=== PATIENT | male | born 1965 | race Caucasian/White ===

== ENCOUNTER 2021-06-13 11:08 | Outpatient (REF) | payer OTHER, SELFPAY ==
[2021-06-13 13:54] LABS: MANUAL DIFF FLAG NO
[2021-06-13 14:00] LABS: Basophils Percent Auto 0.4 % (0-2); Eosinophils Absolute Auto 0.1 X10*3/uL (0.0-0.4); Eosinophils Percent Auto 1.3 % (0-4); Hematocrit 41.4 % (42-52); Hemoglobin 13.8 g/dl (14.0-18.0); Imm Gran Abs Auto 0.01 X10*3/uL (0.00-0.03); Imm Gran Pct Auto 0.2 % (0.0-0.4); Lymphocytes Absolute Auto 1.4 X10*3/uL (1.2-4.9); Lymphocytes Percent Auto 31.5 % (20-40); Mean Corpuscular HGB Conc 33.3 g/dl (31.0-36.0); Mean Corpuscular Hemoglobin 31.4 pg (27.0-33.0); Mean Corpuscular Volume 94.1 fL (80-98); Mean Platelet Volume 9.7 fL (9.4-12.4); Monocytes Absolute Auto 0.3 X10*3/uL (0.1-1.2); Monocytes Percent Auto 7.1 % (2-11); Neutrophils Absolute Auto 2.7 X10*3/uL (2.0-8.3); Neutrophils Percent Auto 59.5 % (45-73); Platelet Count 193 X10*3/uL (160-400); Red Cell Distribution Width 13.1 % (11.0-16.0); White Blood Count 4.5 X10*3/uL (4.8-10.8)
[2021-06-13 14:44] LABS: Alanine Aminotransferase 26 U/L (0-40); Albumin Level 4.2 g/dL (3.5-5.0); Alkaline Phosphatase 66 U/L (39-117); Anion Gap 15 (12-20); Aspartate Amino Transferase 21 U/L (5-37); Bilirubin Total 0.7 mg/dL (0.0-1.0); Blood Urea Nitrogen 19 mg/dL (9-16); Carbon Dioxide 24 mmol/L (22-29); Chloride 105 mmol/L (96-108); Cholesterol 215 mg/dL; Estimated Glomerular Filt Rate > 60; Glucose Fasting 101 mg/dL (60-99); HDL Cholesterol 43 mg/dL; LDL Cholesterol Calculated 159 mg/dl; Potassium 4.2 mmol/L (3.3-5.1); Sodium 140 mmol/L (135-145); Total Protein 6.5 g/dL (6.5-8.0); Triglycerides 67 mg/dL
[2021-06-13 15:09] LABS: PSA,Total (Free>4and<10) 0.55 ng/mL (0.00-4.00); Thyroid Stimulating Hormone 1.09 uIU/mL (0.32-4.0)
[2021-06-18 13:25] LABS: Vitamin D 25-OH, D2 <4 ng/mL; Vitamin D 25-OH, D3 33 ng/mL; Vitamin D 25-OH, Total 33 ng/mL (30-100)
== END 2021-06-13 11:09 | disposition home or self-care (01) ==
LOC: HO.HMGCLDS 11:08
PROVIDERS: PCP Internal Medicine; Visit Provider Internal Medicine
DX: Z00.00 Encounter for general adult medical examination without abnormal findings (principal); D64.9 Anemia, unspecified; E66.9 Obesity, unspecified; Z68.33 Body mass index [BMI] 33.0-33.9, adult; E78.5 Hyperlipidemia, unspecified; E55.9 Vitamin D deficiency, unspecified; G47.33 Obstructive sleep apnea (adult) (pediatric); K21.9 Gastro-esophageal reflux disease without esophagitis; Z12.5 Encounter for screening for malignant neoplasm of prostate
CPT/HCPCS: 36415; 80053; 80061; 82306; 84153; 84443; 85025

== ENCOUNTER 2022-06-12 11:19 | Outpatient (REF) | payer OTHER, SELFPAY ==
[2022-06-12 14:02] LABS: Hematocrit 45.9 % (42.0-52.0); Hemoglobin 15.3 g/dl (14.0-18.0); Mean Corpuscular HGB Conc 33.3 g/dl (31.0-36.0); Mean Corpuscular Hemoglobin 30.9 pg (27.0-33.0); Mean Corpuscular Volume 92.7 fL (80.0-98.0); Mean Platelet Volume 9.6 fL (9.4-12.4); Platelet Count 208 X10*3/uL (160-400); Red Blood Count 4.95 X10*6/uL (4.60-5.80); Red Cell Distribution Width 12.7 % (11.0-16.0); White Blood Count 4.4 X10*3/uL (4.8-10.8)
[2022-06-12 14:28] LABS: Alanine Aminotransferase 25 U/L (0-40); Albumin Level 4.3 g/dL (3.5-5.0); Alkaline Phosphatase 59 U/L (39-117); Anion Gap 12 (12-20); Aspartate Amino Transferase 19 U/L (5-37); Bilirubin Total 0.5 mg/dL (0.0-1.0); Blood Urea Nitrogen 23 mg/dL (9-16); Calcium 9.2 mg/dL (8.4-10.2); Carbon Dioxide 27 mmol/L (22-29); Chloride 105 mmol/L (96-108); Cholesterol 245 mg/dL; Estimated Glomerular Filt Rate > 60; Glucose Fasting 112 mg/dL (60-99); HDL Cholesterol 51 mg/dL; LDL Cholesterol Calculated 181 mg/dl; Potassium 4.2 mmol/L (3.3-5.1); Sodium 140 mmol/L (135-145); Total Protein 6.9 g/dL (6.5-8.0); Triglycerides 67 mg/dL
[2022-06-12 14:51] LABS: Prostate Specific Antigen Scr 0.82 ng/mL (<0.05-4.0)
== END 2022-06-12 11:20 | disposition home or self-care (01) ==
LOC: HO.HMGCLDS 11:19
PROVIDERS: PCP Internal Medicine; Visit Provider Physician Assistant
DX: Z00.00 Encounter for general adult medical examination without abnormal findings (principal); Z12.5 Encounter for screening for malignant neoplasm of prostate
CPT/HCPCS: 36415; 80053; 80061; 84153; 85027

== ENCOUNTER 2023-06-12 07:34 | Outpatient (AMB) | payer OTHER, SELFPAY ==
[2023-06-12 07:41] VITALS: BP 128/72; PULSE 71; O2SAT 98; BMI 37.7
--- NOTE | 2023-06-12 07:41 | A.OFFPC_ITS ---
Vital Signs 06/12/23 07:41 Height 5 ft 10 in Weight 263 lb BMI 37.7 BP 128/72 Blood Pressure Location Lt brachial Position Sitting Pulse 71 Pulse Source Pulse Oximeter Pulse Oximetry (%) 98 Oxygen Delivery Method Room Air Intake Visit Reasons: Annual Exam Single Stayer Operator Required: No Accompanied by: Self / Same As Patient Allergies pollen Allergy (Mild, Uncoded 06/12/23 07:45) Itching Medication List - Last Reconciled 06/12/23 by Emani Sullivan MD omeprazole 20 mg PO DAILY 90 days Tobacco use date assessed: 06/12/23 Dental Screening Dental Screen Date: 06/12/23 Did you have a dental visit in the last 12 months?: Yes Did you have a dental problem in the last 6 months where you did not have access to dental care?: No Was dental information given to patient?: Patient has dentist HPI HPI Comments History of Present Illness0 Details This is a 57-year-old male that comes for his physical exam. Last colonoscopy was 2015 and was normal. Has chronic GERD and has had endoscopy in the past. No chest pain or shortness of breath. Had elevated cholesterol in the past that will be repeated. [facility] Medical History (Updated 06/12/23 @ 08:50 by Emani Sullivan MD) Class 1 obesity without serious comorbidity with body mass index (BMI) of 33.0 to 33.9 in adult GERD (gastroesophageal reflux disease) Leukopenia CARMEN on CPAP Surgical History (Updated 06/12/23 @ 07:56 by Emani Sullivan MD) H/O colonoscopy History of ankle surgery Status post ablation of incompetent vein using laser Family History (Updated 06/12/23 @ 08:02 by Emani Sullivan MD) Father Esophageal cancer Mother Alzheimers disease Social History (Updated 06/12/23 @ 07:56 by Emani Sullivan MD) Housing: Apartment Alcohol intake: current Alcohol intake frequency: a few times a week Alcohol type: other Patient Tobacco Use Status: Never used Tobacco e-Cigarette/Vaping Use: Never Used Second Hand Smoke Exposure: No service: No 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 1. Little interest or pleasure in doing things: not at all 2. Feeling down, depressed, or hopeless: not at all 3. Trouble falling or staying asleep, or sleeping too much: not at all 4. Feeling tired or having little energy: not at all 5. Poor appetite or overeating: not at all 6. Feeling bad about yourself - or that you are a failure or have let yourself or your family down: not at all 7. Trouble concentrating on things, such as reading the newspaper or watching television: not at all 8. Moving or speaking so slowly that other people could have noticed. Or the opposite - being so fidgety or restless that you have been moving around a lot more than usual: not at all 9. Thoughts that you would be better off or of hurting yourself in some way: not at all Total score: 0 Depression Screening Interpretation: Negative 43138 - PHQ-9 Billing: Yes Source: Developed by Drs. Aidan Mason, Cady Guzmán, Jarret Georges and colleagues, with an educational keily from [employer]. Thrive Questionnaire Date Thrive assessed: 06/12/23 I am a: Patient What is your living situation today?: I have a steady place to live Within the past 12 months, did the food you bought not last and you didn't have the money to get more?: Never true Within the past 12 months, did you worry whether your food would run out before you got money to buy more?: Never true Do you have trouble paying for medicines?: No Do you have trouble getting transportation to medical appointments?: No Do you have trouble paying your heating and electricity bill?: No Do you have trouble taking care of your child, family member or friend?: No Do you have trouble with day-to-day activities such as bathing, preparing meals, shopping, managing finances, etc.?: No Are you currently unemployed and looking for a job?: No Are you interested in more education?: No Currently or been in a relationship where the following occur: no concerns reported AUDIT C Alcohol Use Questionnaire (AUDIT-C) 1. How often do you have a drink containing alcohol?: Monthly or less 2. How many drinks containing alcohol do you have on a typical day when you are drinking?: 1 or 2 3. How often do you have six or more drinks on one occasion?: Never Total Score: 1 Score Reviewed/Action Taken: No SOLO-7 AMB Questionnaire SOLO-7 Date SOLO - 7 assessed: 06/12/23 Feeling nervous, anxious, or on edge: 0 = Not at all Not being able to stop or control worryin = Not at all Worrying too much about different things: 0 = Not at all Trouble relaxin = Not at all Being so restless that it is hard to sit still: 0 = Not at all Becoming easily annoyed or irritable: 0 = Not at all Feeling afraid as if something awful might happen: 0 = Not at all Total SOLO-7 score (0-4 normal; 5-9 mild; 10-14 moderate; 15-21 severe): 0 Source: Developed by Drs. Aidan Mason, Cady Guzmán, Jarret Georges and colleagues, with an educational keily from [employer]. SOLO-7 Assessment Billing SOLO-7 Assessment Tool: SOLO-7 Assessment 91872 Review of Systems Const All systems reviewed & are unremarkable except as noted in HPI and below Eyes Reports no additional complaints, Denies change in vision and Denies other visual disturbances Card Denies chest pain at rest, Denies chest pain with activity, Denies edema, Denies irregular heart rhythm, Denies claudication, Denies dyspnea, Denies dyspnea on exertion, Denies orthopnea, Denies paroxysmal nocturnal dyspnea and Denies slow heart rate Resp Denies cough, Denies dyspnea and Denies dyspnea on exertion GI Denies abdominal pain, Denies change in bowel habits, Denies excessive flatus, Denies nausea and Denies vomiting Denies urinary hesitancy, Denies urinary incontinence and Denies urinary urgency Musc Denies abnormal gait, Denies atrophy, Denies deformity and Denies limited range of motion Skin/Breast Denies bleeding lesions, Denies changing lesions and Denies rash Neuro Denies abnormal gait and Denies lack of coordination Physical exam (Primary Care) Vital Signs: Last Vital Signs Pulse 71 06/12/23 07:41 BP 128/72 06/12/23 07:41 Pulse Ox 98 06/12/23 07:41 Oxygen Delivery Method Room Air 06/12/23 07:41 BMI result Body Mass Index 37.7 Tobacco/Smoking Status: Tobacco use Status Tobacco use date assessed 06/12/23 06/12/23 07:44 Patient Tobacco Use Status Never used Tobacco 06/12/23 07:56 e-Cigarette/Vaping Use Never Used 06/12/23 07:56 PHQ-9: PHQ-9 Score PHQ-9: Total score 0 06/12/23 07:48 Depression Screening Interpretation: Negative Thrive Assessment: Date of Thrive Assessment Date Thrive assessed 06/12/23 06/12/23 07:44 Currently or been in a relationship where the following occur: no concerns reported Const Orientation/consciousness: patient oriented x3 HENMT Head: Yes normal to inspection, Yes normocephalic and Yes atraumatic Ears: external ears normal Eyes General: appearance normal, both eyes and all related structures Eyelids: Yes eyelids normal Conjunctivae: conjunctivae normal Neck Neck: Yes normal visual inspection and Yes supple Resp Effort & Inspection: normal respiratory effort Auscultation: clear to auscultation bilaterally Cardio Jugular venous distension: no JVD Rate: regular rate Rhythm: regular rhythm Heart sounds: S1 normal heart sound present and S2 normal heart sound present GI Inspection: Yes normal to inspection Palpation (GI): Soft to palpation and nontender Auscultation: normal bowel sounds Skin General skin exam: no rashes or lesions noted Neuro General: patient oriented x3 and no focal motor deficits Extrem General: Yes full ROM Psych Appearance: grossly normal Assessment and Plan Assessment & Plan (1) Annual physical exam: Code(s): Z00.00 - Encounter for general adult medical examination without abnormal findings Plan: Repeat in a year Orders: Orders Comprehensive [place]. Panel Fast Today Z00.00 - Encounter for general adult medical examination without abnormal findings Lipid Panel Today Z00.00 - Encounter for general adult medical examination without abnormal findings Medications: Refilled omeprazole 20 mg PO DAILY 90 caps 3RF 90 days Coding Level of Care Code Est Pt Prev Care 40-64y(74677) Diagnoses Annual physical exam Z00.00 Additional Codes SOLO-7 Assessment Billing - SOLO-7 Assessment Tool: SOLO-7 Assessment [id number] ([id number]) Time Spent (min) 32
== END 2023-06-12 08:08 | disposition home or self-care (01) ==
PROVIDERS: PCP Internal Medicine; Visit Provider Internal Medicine
DX: Z00.00 Encounter for general adult medical examination without abnormal findings (principal)
CPT/HCPCS: 99396

== ENCOUNTER 2023-06-17 08:02 | Outpatient (REF) | payer OTHER, SELFPAY ==
[2023-06-17 11:58] LABS: Alanine Aminotransferase 23 U/L (0-40); Albumin Level 4.1 g/dL (3.5-5.0); Alkaline Phosphatase 65 U/L (39-117); Anion Gap 11 (12-20); Aspartate Amino Transferase 20 U/L (5-37); Bilirubin Total 0.8 mg/dL (0.0-1.0); Blood Urea Nitrogen 15 mg/dL (9-16); Calcium 9.4 mg/dL (8.4-10.2); Carbon Dioxide 28 mmol/L (22-29); Chloride 105 mmol/L (96-108); Cholesterol 200 mg/dL (<200); Estimated Glomerular Filt Rate > 60; Glucose Fasting 115 mg/dL (60-99); HDL Cholesterol 40 mg/dL (>40); LDL Cholesterol Calculated 135 mg/dL (<100); Sodium 140 mmol/L (135-145); Total Protein 6.8 g/dL (6.5-8.0); Triglycerides 128 mg/dL (<150)
== END 2023-06-17 08:03 | disposition home or self-care (01) ==
LOC: HO.HMGCLDS 08:02
PROVIDERS: PCP Internal Medicine; Visit Provider Internal Medicine
DX: Z00.00 Encounter for general adult medical examination without abnormal findings (principal)
CPT/HCPCS: 36415; 80053; 80061

== ENCOUNTER → 2024-03-18 09:58 | Outpatient (REF) | payer OTHER, SELFPAY | LOC: HO.SL 09:58 | PROVIDERS: PCP Internal Medicine; Visit Provider Internal Medicine | DX: G47.33 Obstructive sleep apnea (adult) (pediatric) (principal); Z99.89 Dependence on other enabling machines and devices | CPT/HCPCS: 95806 ==

== ENCOUNTER → 2024-03-18 10:10 | Outpatient (BNV) | payer OTHER, SELFPAY | PROVIDERS: PCP Internal Medicine; Visit Provider Internal Medicine | DX: G47.33 Obstructive sleep apnea (adult) (pediatric) (principal) | CPT/HCPCS: 95806 ==

== ENCOUNTER 2024-06-14 09:16 | Outpatient (AMB) | payer SELFPAY ==
--- NOTE | 2024-06-14 09:36 | AM.OFFWIN_ITS ---
Intake Vital Signs 06/14/24 09:37 Height 5 ft 10 in Weight 267 lb BMI 38.3 BP 110/82 Blood Pressure Location Rt brachial Position Sitting Pulse 70 Pulse Source Pulse Oximeter Temp 97.9 F Temp Source Oral Pulse Oximetry (%) 98 Oxygen Delivery Method Room Air Intake Visit Reasons: EP Work PE/OK By Jess Intake Note: pt is here for a physical exam for work. Patient Tobacco Use Status: Never used Tobacco Allergies pollen Allergy (Mild, Uncoded 06/14/24 09:37) Itching Do you need a note to return to daycare/school/sports/work: Yes HPI HPI Comments History of Present Illness Details Patient is a 58-year-old male with a past medical history of hyperlipidemia, obesity, CARMEN on CPAP, GERD and leukopenia who is here for a PE for work. He denies any chest pain, chest pain at rest, palpitations, headaches or any other feeling of unwell. 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 He states he generally stands in [address] for the games and does not run up and down the court. [facility] Medical History (Updated 03/30/24 @ 18:36 by Emani Sullivan MD) Leukopenia Class 1 obesity without serious comorbidity with body mass index (BMI) of 33.0 to 33.9 in adult CARMEN on CPAP GERD (gastroesophageal reflux disease) Surgical History (Updated 06/12/23 @ 07:56 by Emani Sullivan MD) Status post ablation of incompetent vein using laser H/O colonoscopy History of ankle surgery Family History (Updated 06/12/23 @ 08:02 by Emani Sullivan MD) Father Esophageal cancer Mother Alzheimers disease Social History (Updated 06/12/23 @ 07:56 by Emani Sullivan MD) Housing: Apartment Alcohol intake: current Alcohol intake frequency: a few times a week Alcohol type: other Patient Tobacco Use Status: Never used Tobacco e-Cigarette/Vaping Use: Never Used Second Hand Smoke Exposure: No service: No Current occupational status: retired 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 Cognitive needs: No Hearing needs: No Vision needs: No Review of Systems Const All systems reviewed & are unremarkable except as noted in HPI and below Physical Exam Vital Signs: Last Vital Signs Temp 97.9 F 06/14/24 09:37 Pulse 70 06/14/24 09:37 BP 110/82 06/14/24 09:37 Pulse Ox 98 06/14/24 09:37 Oxygen Delivery Method Room Air 06/14/24 09:37 BMI result Body Mass Index 38.3 Const General: cooperative, healthy appearing, comfortable, no acute distress and well developed Orientation/consciousness: patient oriented x3 Limitations: no limitations HEENT Head: Yes normal to inspection Ears: hearing grossly normal bilaterally General nose exam: Normal external nose present Face and sinus: Yes normal facial exam Eyes General: appearance normal, both eyes and all related structures Neck Neck: Yes normal visual inspection and Yes full ROM Resp Effort & Inspection: normal respiratory effort and able to speak in complete sentences Auscultation: clear to auscultation bilaterally Cardio Rate: regular rate Rhythm: regular rhythm Heart sounds: normal S1 and S2 GI Inspection: Yes normal to inspection Palpation (GI): Soft to palpation and nontender Skin General skin exam: no rashes or lesions noted Neuro General: patient oriented x3 Extrem Other: 5/5 strength upper and lower extremities bilaterally General: Yes normal to inspection, Yes full ROM, Yes capillary refill normal, Yes no pedal edema and Yes normal gait Right upper extremity: normal to inspection, full ROM and normal capillary refill Left upper extremity: normal to inspection, full ROM and normal capillary refill Right lower extremity: normal to inspection, full ROM and normal capillary refill Left lower extremity: normal to inspection, full ROM and normal capillary refill Assessment & Plan Assessment & Plan (1) Annual physical exam: Code(s): Z00.00 - Encounter for general adult medical examination without abnormal findings Plan: Vital signs are stable, physical exam was unremarkable. Patient appears in good overall health with no complaints. 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 Plan See above Coding Level of Care Code Sports/Work/School Physical Diagnoses Annual physical exam Z00.00 Time Spent (min) 20
[2024-06-14 09:37] VITALS: BP 110/82; PULSE 70; TEMP 36.6; O2SAT 98; BMI 38.3
== END 2024-06-14 10:07 | disposition home or self-care (01) ==
PROVIDERS: PCP Internal Medicine; Visit Provider Physician Assistant
DX: Z00.00 Encounter for general adult medical examination without abnormal findings (principal)
CPT/HCPCS: 99080

== ENCOUNTER 2025-02-15 08:45 | Outpatient (AMB) | payer OTHER, SELFPAY ==
--- NOTE | 2025-02-15 08:48 | A.OFFPC_ITS ---
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 Required: No Accompanied by: Self / Same As Patient Allergies pollen Allergy (Mild, Uncoded 02/15/25 08:56) Itching Medication List - Last Reconciled 02/15/25 by Emani Sullivan MD CPAP auto PAP 6-20 cm H2O omeprazole 20 mg PO DAILY 90 days Tobacco use date assessed: 02/15/25 Dental Screening Dental Screen Date: 02/15/25 Did you have a dental visit in the last 12 months?: Yes Did you have a dental problem in the last 6 months where you did not have access to dental care?: No Was dental information given to patient?: Patient has dentist HPI HPI Comments History of Present Illness Details The patient is a 59-year-old male presenting for an annual physical examination. He is due for a colonoscopy next year after having his last one in 2015. His last tetanus vaccine was in 2014, and although initially reluctant, he agreed on the vaccine. There is ongoing management of weight through dietary controls and increased physical activity, resulting in weight loss. His past blood sugar levels indicated prediabetes, prompting follow-up lab work to check cholesterol within this year's wellness profile. He continues to experience symptoms from GERD and maintains daily omeprazole use due to a hiatal hernia. A CPAP machine is employed for sleep apnea management. His surgical history includes a past ankle procedure tied to an old injury. A family history reveals concerns of esophageal cancer and Alzheimer's disease. Lifestyle modifications extend to abstaining from tobacco while consuming low- carb alcoholic seltzers occasionally. 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 - Next colonoscopy due next year; last c onducted in 2015. - Tetanus vaccination is due; last recei franklin in 2014. - Focus on weight management through imp roved diet and increased cardio activity. - Follow-up lab work for cholesterol and blood glucose to be confirmed this year. - Continuous use of CPAP machine for sle ep apnea. [facility] Medical History Leukopenia Class 1 obesity without serious comorbidity with body mass index (BMI) of 33.0 to 33.9 in adult CARMEN on CPAP GERD (gastroesophageal reflux disease) Surgical History Status post ablation of incompetent vein using laser H/O colonoscopy History of ankle surgery Family History Father Esophageal cancer Mother Alzheimers disease Social History Housing: Apartment Alcohol intake: current Alcohol intake frequency: a few times a week Alcohol type: other Patient Tobacco Use Status: Never used Tobacco e-Cigarette/Vaping Use: Never Used Second Hand Smoke Exposure: No service: No Current occupational status: retired 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 Cognitive needs: No Hearing needs: No Vision needs: No Questionnaire PHQ-9 Over the last 2 weeks, how often have you been bothered by any of the following problems? 1. Little interest or pleasure in doing things: not at all 2. Feeling down, depressed, or hopeless: not at all 3. Trouble falling or staying asleep, or sleeping too much: not at all 4. Feeling tired or having little energy: not at all 5. Poor appetite or overeating: not at all 6. Feeling bad about yourself - or that you are a failure or have let yourself or your family down: not at all 7. Trouble concentrating on things, such as reading the newspaper or watching television: not at all 8. Moving or speaking so slowly that other people could have noticed. Or the opposite - being so fidgety or restless that you have been moving around a lot more than usual: not at all 9. Thoughts that you would be better off or of hurting yourself in some way: not at all Total score: 0 Depression Screening Interpretation: Negative Depression Screening Done: Yes 73187 - PHQ-9 Billing: Patient declined-do not bill Source: Developed by Drs. Aidan Mason, Cady Guzmán, Jarret Georges and colleagues, with an educational keily from [employer]. Thrive Questionnaire Date Thrive assessed: 02/08/25 I am a: Patient What is your living situation today?: I have a steady place to live Within the past 12 months, did the food you bought not last and you didn't have the money to get more?: Never true Within the past 12 months, did you worry whether your food would run out before you got money to buy more?: Never true Do you have trouble paying for medicines?: No Do you have trouble getting transportation to medical appointments?: No Do you have trouble paying your heating and electricity bill?: No Do you have trouble taking care of your child, family member or friend?: No Do you have trouble with day-to-day activities such as bathing, preparing meals, shopping, managing finances, etc.?: No Are you currently unemployed and looking for a job?: No Are you interested in more education?: No Please select the resources that you would like help with: None Currently or been in a relationship where the following occur: No concerns reported THRIVE Score: 0 AUDIT C Alcohol Use Questionnaire (AUDIT-C) 1. How often do you have a drink containing alcohol?: Monthly or less 2. How many drinks containing alcohol do you have on a typical day when you are drinking?: 1 or 2 3. How often do you have six or more drinks on one occasion?: Never Total Score: 1 Score Reviewed/Action Taken: No SOLO-7 AMB Questionnaire SOLO-7 Date SOLO - 7 assessed: 02/15/25 Feeling nervous, anxious, or on edge: 0 = Not at all Not being able to stop or control worryin = Not at all Worrying too much about different things: 0 = Not at all Trouble relaxin = Not at all Being so restless that it is hard to sit still: 0 = Not at all Becoming easily annoyed or irritable: 0 = Not at all Feeling afraid as if something awful might happen: 0 = Not at all Total SOLO-7 score (0-4 normal; 5-9 mild; 10-14 moderate; 15-21 severe): 0 Source: Developed by Drs. Aidan Mason, Cady Guzmán, Jarret Georges and colleagues, with an educational keily from [employer]. SOLO-7 Assessment Billing SOLO-7 Assessment Tool: SOLO-7 Assessment 21978 Review of Systems Const All systems reviewed & are unremarkable except as noted in HPI and below Card Denies chest pain at rest, Denies chest pain with activity, Denies edema, Denies irregular heart rhythm, Denies claudication, Denies dyspnea, Denies dyspnea on exertion, Denies orthopnea, Denies paroxysmal nocturnal dyspnea and Denies slow heart rate Resp Denies cough, Denies dyspnea and Denies dyspnea on exertion GI Denies abdominal pain, Denies change in bowel habits, Denies excessive flatus, Denies nausea and Denies vomiting Denies urinary hesitancy, Denies urinary incontinence and Denies urinary urgency Neuro Denies behavioral changes and Denies lack of coordination Psych Denies behavioral changes Physical exam (Primary Care) Vital Signs: Last Vital Signs BP 122/86 02/15/25 08:52 BMI result Body Mass Index 34.0 BMI Assessment/Plan discussion: High BMI High, discussed plan: lifestyle, weight reduction, dietary and physical activity Tobacco/Smoking Status: Tobacco use Status Tobacco use date assessed 02/15/25 02/15/25 08:55 Patient Tobacco Use Status Never used Tobacco 02/15/25 08:55 e-Cigarette/Vaping Use Never Used 02/15/25 08:55 PHQ-9: PHQ-9 Score PHQ-9: Total score 0 02/15/25 09:15 Depression Screening Interpretation: Negative Thrive Assessment: Date of Thrive Assessment Date Thrive assessed 02/08/25 02/15/25 08:55 Currently or been in a relationship where the following occur: No concerns r eported [facility] Head: Yes normal to inspection, Yes normocephalic and Yes atraumatic Ears: external ears normal Eyes General: appearance normal, both eyes and all related structures Eyelids: Yes eyelids normal Conjunctivae: conjunctivae normal Neck Neck: Yes normal visual inspection and Yes supple Resp Effort & Inspection: normal respiratory effort Auscultation: clear to auscultation bilaterally Cardio Jugular venous distension: no JVD Rate: regular rate Rhythm: regular rhythm Heart sounds: S1 normal heart sound present and S2 normal heart sound present GI Inspection: Yes normal to inspection Palpation (GI): Soft to palpation and nontender Auscultation: normal bowel sounds Skin General skin exam: no rashes or lesions noted Neuro General: no focal motor deficits Extrem General: Yes full ROM Psych Appearance: grossly normal Immunizations Boostrix Tdap 2.5 Lf unit-8 mcg-5 Lf/0.5 mL intramuscular syringe Performing Provider: Emani Sullivan MD Performing Location[facility] [place] Administered by: DARCI Sal on 02/15/25 09:15 Dose Route Admin Location Dispensed Lot Number Expiration Date [facility] 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 0.5 mL IM Left Deltoid 0.5 mL [id number] 06/22/27 [id number] [employer] VIS Given Date VIS Provided VIS Publication Date 02/15/25 Single Vaccine 24 Eligibility Eligibility Date Funding Source Not [facility] Eligible 02/15/25 Private Coding Level of Care Code Est Pt Prev Care 40-64y(15265) Diagnoses Annual physical exam Z00.00 Additional Codes SOLO-7 Assessment Billing - SOLO-7 Assessment Tool: SOLO-7 Assessment 23551 ([id number]) Time Spent (min) 29 Assessment & Plan Assessment & Plan (1) Annual physical exam: Code(s): Z00.00 - Encounter for general adult medical examination without abnormal findings Category: Medical Plan I discussed updating the tetanus vaccination, and emphasize the patient's ongoing lifestyle efforts, focusing on diet and exercise for weight management and cardio routine effectiveness. I planned cholesterol and blood glucose labs, reinforcing GERD control through daily omeprazole and addressing CPAP use for sleep apnea. Colonoscopy screening will occur in the upcoming year due to past procedure schedule and family cancer history. Periodic checks for venous insufficiency will account for surgical interventions and resultant improvements. Patient was informed and verbally consented to the use of an ambient scribe for clinic note documentation during this visit. I discussed administering the tetanus vaccine which was due since the last dose was given in 2014, ultimately agreeing to this today. I affirmed the patient's need for consistent weight management and increased physical activity, emphasizing the benefits of maintaining prediabetes and hyperlipidemia under control. The patient was reminded of using the CPAP machine to improve sleep apnea and plans for a colonoscopy next year, vital due to his father's history of esophageal cancer. I reassured him of continued management of GERD through omeprazole and following up on his venous insufficiency monitoring as previous surgical intervention proved effective. Orders: Orders Lipid Panel Today Z00.00 - Encounter for general adult medical examination without abnormal findings Comprehensive [place]. Panel Fast Today Z00.00 - Encounter for general adult medical examination without abnormal findings TDaP Immunization Today Z23 - Encounter for immunization Patient Instructions: - Receive tetanus vaccination today. - Maintain diet and exercise for weight and cardio health. - Conduct lab work for cholesterol and glucose monitoring. - Continue omeprazole for GERD as directed. - Use CPAP machine every night to manage sleep apnea. - Plan for colonoscopy screening next year. - Follow up with any new symptoms or concerns promptly.
[2025-02-15 08:52] VITALS: BP 122/86; BMI 34.0
== END 2025-02-15 09:15 | disposition home or self-care (01) ==
LOC: HO.HMCH 08:46
PROVIDERS: PCP Internal Medicine; Visit Provider Internal Medicine
DX: Z23 Encounter for immunization (principal); Z00.00 Encounter for general adult medical examination without abnormal findings

== ENCOUNTER → 2025-02-15 08:45 | Outpatient (BNVA) | payer OTHER, SELFPAY | PROVIDERS: PCP Internal Medicine; Visit Provider Internal Medicine | DX: Z00.00 Encounter for general adult medical examination without abnormal findings (principal); Z23 Encounter for immunization; K21.9 Gastro-esophageal reflux disease without esophagitis; K44.9 Diaphragmatic hernia without obstruction or gangrene; Z79.899 Other long term (current) drug therapy | CPT/HCPCS: 90471; 90715; 96127 ==

== ENCOUNTER 2025-02-16 09:03 | Outpatient (REF) | payer OTHER, SELFPAY ==
[2025-02-16 11:01] LABS: Alanine Aminotransferase 33 U/L (0-40); Albumin Level 4.1 g/dL (3.5-5.0); Alkaline Phosphatase 90 U/L (39-117); Anion Gap 10 (12-20); Aspartate Amino Transferase 28 U/L (5-37); Bilirubin Total 1.1 mg/dL (0.0-1.0); Blood Urea Nitrogen 16 mg/dL (9-16); Calcium 8.7 mg/dL (8.4-10.2); Carbon Dioxide 27 mmol/L (22-29); Chloride 106 mmol/L (96-108); Cholesterol 185 mg/dL (<200); Estimated Glomerular Filt Rate > 60; Glucose Fasting 101 mg/dL (60-99); HDL Cholesterol 39 mg/dL (>40); LDL Cholesterol Calculated 119 mg/dL (<100); Potassium 3.6 mmol/L (3.3-5.1); Sodium 139 mmol/L (135-145); Total Protein 6.7 g/dL (6.5-8.0); Triglycerides 135 mg/dL (<150)
== END 2025-02-16 09:04 | disposition home or self-care (01) ==
LOC: HO.HMGCLDS 09:03
PROVIDERS: PCP Internal Medicine; Visit Provider Internal Medicine
DX: Z00.00 Encounter for general adult medical examination without abnormal findings (principal)
CPT/HCPCS: 36415; 80053; 80061

== ENCOUNTER 2025-08-10 08:17 | Outpatient (AMB) | payer OTHER, SELFPAY ==
[2025-08-10 08:21] VITALS: BP 118/84; PULSE 77; TEMP 36.2; O2SAT 96; BMI 33.3
--- NOTE | 2025-08-10 08:21 | A.OFFPC_ITS ---
Vital Signs 08/10/25 08:21 Height 5 ft 10 in Weight 232 lb 2 oz BMI 33.3 BP 118/84 Blood Pressure Location Lt brachial Position Sitting Pulse 77 Pulse Source Pulse Oximeter Temp 97.1 F Temp Source Temporal Artery Scan Pulse Oximetry (%) 96 Oxygen Delivery Method Room Air Intake Visit Reasons: Abdominal Pain Allergies pollen Allergy (Mild, Uncoded 08/10/25 08:23) Itching Tobacco use date assessed: 08/10/25 Dental Screening Dental Screen Date: 08/10/25 Did you have a dental visit in the last 12 months?: Yes Did you have a dental problem in the last 6 months where you did not have access to dental care?: No Was dental information given to patient?: Patient has dentist HPI HPI Comments History of Present Illness Details The patient is a 59-year-old male presenting with severe RUQ abdominal pain. The abdominal pain began approximately three weeks ago, waking the patient at 2 AM with severe discomfort located in the right upper abdomen. The pain was intense, preventing him from finding a comfortable position, and lasted about an hour before subsiding, allowing him to return to sleep. A similar episode occurred a week ago while the patient was at a grocery store, described as feeling like he had done numerous sit-ups, with pain escalating to a 9.5 on a scale of 10. The pain was located just below the ribs, more on the right side, and lasted for about two hours before decreasing in intensity. On both days the patient had large fatty meals (big mac). The patient has lost approximately 33 pounds since September through intermittent fasting and dietary changes, reducing his weight from 265 to 232 pounds. He has been consuming less food overall, including reducing pizza intake and avoiding large meals. The patient has a history of gastroesophageal reflux disease (GERD) and a hiatal hernia, for which he takes omeprazole regularly. He reports that omeprazole effectively controls his symptoms unless he forgets to take it. There is a family history of esophageal cancer and Lee's esophagus, with the patient's father having from esophageal cancer and three siblings diagnosed with Lee's esophagus. [facility] Medical History Leukopenia Class 1 obesity without serious comorbidity with body mass index (BMI) of 33.0 to 33.9 in adult CARMEN on CPAP GERD (gastroesophageal reflux disease) Surgical History Status post ablation of incompetent vein using laser H/O colonoscopy History of ankle surgery Family History Father Esophageal cancer Mother Alzheimers disease Social History Housing: Apartment Alcohol intake: current Alcohol intake frequency: a few times a week Alcohol type: other Patient Tobacco Use Status: Never used Tobacco e-Cigarette/Vaping Use: Never Used Second Hand Smoke Exposure: No service: No 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 1. Little interest or pleasure in doing things: not at all 2. Feeling down, depressed, or hopeless: not at all 3. Trouble falling or staying asleep, or sleeping too much: not at all 4. Feeling tired or having little energy: not at all 5. Poor appetite or overeating: not at all 6. Feeling bad about yourself - or that you are a failure or have let yourself or your family down: not at all 7. Trouble concentrating on things, such as reading the newspaper or watching television: not at all 8. Moving or speaking so slowly that other people could have noticed. Or the opposite - being so fidgety or restless that you have been moving around a lot more than usual: not at all 9. Thoughts that you would be better off or of hurting yourself in some way: not at all Total score: 0 Depression Screening Interpretation: Negative Depression Screening Done: Yes Source: Developed by Drs. Aidan Mason, Cady Guzmán, Jarret Georges and colleagues, with an educational keily from [employer]. Thrive Questionnaire Date Thrive assessed: 02/08/25 I am a: Patient What is your living situation today?: I have a steady place to live Within the past 12 months, did the food you bought not last and you didn't have the money to get more?: Never true Within the past 12 months, did you worry whether your food would run out before you got money to buy more?: Never true Do you have trouble paying for medicines?: No Do you have trouble getting transportation to medical appointments?: No Do you have trouble paying your heating and electricity bill?: No Do you have trouble taking care of your child, family member or friend?: No Do you have trouble with day-to-day activities such as bathing, preparing meals, shopping, managing finances, etc.?: No Are you currently unemployed and looking for a job?: No Are you interested in more education?: No Please select the resources that you would like help with: None Currently or been in a relationship where the following occur: No concerns reported THRIVE Score: 0 AUDIT C Alcohol Use Questionnaire (AUDIT-C) 1. How often do you have a drink containing alcohol?: Monthly or less 2. How many drinks containing alcohol do you have on a typical day when you are drinking?: 1 or 2 3. How often do you have six or more drinks on one occasion?: Never Total Score: 1 SOLO-7 AMB Questionnaire SOLO-7 Date SOLO - 7 assessed: 02/15/25 Feeling nervous, anxious, or on edge: 0 = Not at all Not being able to stop or control worryin = Not at all Worrying too much about different things: 0 = Not at all Trouble relaxin = Not at all Being so restless that it is hard to sit still: 0 = Not at all Becoming easily annoyed or irritable: 0 = Not at all Feeling afraid as if something awful might happen: 0 = Not at all Total SOLO-7 score (0-4 normal; 5-9 mild; 10-14 moderate; 15-21 severe): 0 Source: Developed by Drs. Aidan Mason, Cady Guzmán, Jarret Georges and colleagues, with an educational keily from [employer]. Review of Systems Const Details: Positives besides what was mentioned in HPI are in BOLD Constitutional: No Weight Change, No Fever, No Chills, No Night Sweats, No Fatigue, No Malaise ENT/Mouth: No Hearing Changes, No Ear Pain, No Nasal Congestion, No Sinus Pain, No Hoarseness, No sore throat, No Rhinorrhea, No Swallowing Difficulty Eyes: No Eye Pain, No Swelling, No Redness, No Foreign Body, No Discharge, No Vision Changes Cardiovascular: No Chest Pain, No SOB, No PND, No Dyspnea on Exertion, No Orthopnea, No Claudication, No Edema, No Palpitations Respiratory: No Cough, No Sputum, No Wheezing, No Smoke Exposure, No Dyspnea Gastrointestinal: No Nausea, No Vomiting, No Diarrhea, No Constipation, No Pain, No Heartburn, No Anorexia, No Dysphagia, No Hematochezia, No Melena, No Flatulence, No Jaundice Genitourinary: No Dysmenorrhea, No DUB, No Dyspareunia, No Dysuria, No Urinary Frequency, No Hematuria, No Urinary Incontinence, No Urgency, No Flank Pain, No Urinary Flow Changes, No Hesitancy Musculoskeletal: No Arthralgias, No Myalgias, No Joint Swelling, No Joint Stiffness, No Back Pain, No Neck Pain, No Injury History Skin: No Skin Lesions, No Pruritis, No Hair Changes, No Breast/Skin Changes, No Nipple Discharge Neuro: No Weakness, No Numbness, No Paresthesias, No Loss of Consciousness, No Syncope, No Dizziness, No Headache, No Coordination Changes, No Recent Falls Psych: No Anxiety/Panic, No Depression, No Insomnia, No Personality Changes, No Delusions, No Rumination, No SI/HI/AH/VH, No Social Issues, No Memory Changes, No Violence/Abuse Hx., No Eating Concerns Heme/Lymph: No Bruising, No Bleeding, No Transfusions History, No Lymphadenopathy Endocrine: No Polyuria, No Polydipsia, No Temperature Intolerance Physical exam (Primary Care) Vital Signs: Last Vital Signs Temp 97.1 F 08/10/25 08:21 Pulse 77 08/10/25 08:21 BP 118/84 08/10/25 08:21 Pulse Ox 96 08/10/25 08:21 Oxygen Delivery Method Room Air 08/10/25 08:21 BMI result Body Mass Index 33.3 Tobacco/Smoking Status: Tobacco use Status Tobacco use date assessed 08/10/25 08/10/25 08:24 Patient Tobacco Use Status Never used Tobacco 08/10/25 08:24 e-Cigarette/Vaping Use Never Used 08/10/25 08:24 PHQ-9: PHQ-9 Score PHQ-9: Total score 0 08/10/25 08:24 Depression Screening Interpretation: Negative Thrive Assessment: Date of Thrive Assessment Date Thrive assessed 02/08/25 08/10/25 08:24 Currently or been in a relationship where the following occur: No concerns reported Const Other: Pertinent findings are in BOLD GENERAL APPEARANCE NAD, activity normal for age, well developed/ well nourished, no cyanosis, pallor, or diaphoresis. EYES lids/conjunctiva normal. EARS/NOSE/THROAT Mucous membranes moist, nares normal, lips/teeth normal uvula midline without oral pharyngeal erythema, exudate or swelling TMs normal bilaterally. No lymphangitis/lymphedema. HEAD/NECK normocephalic atraumatic, no facial trauma, neck is supple. RESPIRATORY respiratory effort normal, speaks in full sentences, no tripod position, no accessory muscle use. Lungs clear to auscultation without rhonchi, wheezes, rales CARDIAC Regular rate and rhythm, no edema. ABDOMINAL Soft, ND/NT. No evidence of fluid wave. No pulsatile masses on exam, rebound tenderness, Willard sign or pain over Mcburney's point. MUSCLES/EXTREMITIES No abnormal range of motion, no swelling. SKIN Warm, pink and dry. No rashes, dermatoses, petechiae or lesions. NEUROLOGICAL Speech is clear and appropriate. Normal level of consciousness. Gait and coordination are normal. 5/5 strength in all extremities. PSYCH Normal mood and affect. Judgement/competence is appropriate Coding Level of Care Code Est Pt Level 3 (13916) Diagnoses Abdominal pain R10.9 Time Spent (min) 20 Assessment & Plan Assessment & Plan (1) Abdominal pain: Code(s): R10.9 - Unspecified abdominal pain Category: Medical Plan: - Plan to perform an abdominal ultrasound to evaluate for gallbladder pathology. - Advised to keep a diary of food intake and pain episodes to identify potential triggers. Plan I discussed with the patient the possibility of gallbladder issues, including cholecystitis, and recommended an abdominal ultrasound to evaluate further. We talked about the importance of dietary modifications to manage symptoms of GERD and potentially reduce abdominal pain episodes. The patient was advised to maintain a food diary to help identify any dietary triggers for his symptoms. Orders: Orders US abdomen limited Today R10.9 - Unspecified abdominal pain
--- OUTSIDE RECORDS SUMMARY | 2025-08-10 08:37 | XMS_ITS | Patient Health Record ---
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 Name Role Phone mEani Henderson Primary Care Provider Unavailab Héctor Guevara Jr Unavailable [phone] Reason For Referral No Information Medications Medication SIG (Take, Route, Fr equency, Duration) Notes Start Date End Date Status PriLOSEC 20 MG Orally Activ e Problems Problem Type SNOMED Code ICD Code Onset Dates Problem Status W/U Status Risk Notes Problem Pre-procedure evaluation check (359786273) Encounter for other preprocedural examination (Z01.818) Active confirmed Problem Screening for colon cancer (209266346) Screening for colon cancer (Z12.11) Active confirmed Plan Of Treatment Future Test Test Name Order Date COLONOSCOPY 02/01/2016 Insurance Providers Payer Name Payer Address Payer Phone Subscriber Number Group Number Insured Name Patient Relationship to Insured Coverage Start Date Coverage End Date [facility] [address] [place] [phone] [id number] LOC RASHAWN Self - patient is the insured Medical (General) History Medical History History ICD Code esophageal reflux, endoscopy reportedly normal 12 years ago. sleep apnea Surgical History Surgery Date(Month/Year) ankle tendon left repair 2011
== END 2025-08-10 08:52 | disposition home or self-care (01) ==
LOC: HO.HMCH 08:18
PROVIDERS: PCP Internal Medicine; Visit Provider Internal Medicine
DX: R10.9 Unspecified abdominal pain (principal)

== ENCOUNTER 2025-10-15 08:44 | Inpatient (IN) | payer OTHER, SELFPAY ==
--- NOTE | ~2025-10-15 | CT_ITS ---
CLINICAL HISTORY: abd pain CT abdomen and pelvis with IV contrast. COMPARISON: None provided. FINDINGS: Minimal atelectasis along the lung bases. No focal hepatic lesion. Normal gallbladder. Normal spleen. Small splenule present. Normal pancreas. Normal adrenal glands. Symmetric renal enhancement. No hydronephrosis. Normal appendix. Moderate colonic diverticulosis without evidence of diverticulitis. No bowel obstruction. Focal edema along the mesenteric root with mildly prominent lymph nodes in this region and thin pseudo capsule. Mild aortoiliac atherosclerotic vascular calcifications. Normal appearance of the urinary bladder. No inguinal lymphadenopathy. No acute fracture or suspicious bone lesion. IMPRESSION: 1. No evidence of appendicitis or bowel obstruction. 2. Colonic diverticulosis without evidence of diverticulitis. 3. 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 This document has been electronically signed by: Adam Garcia MD on 10/15/2025 14:02:56
--- NOTE | ~2025-10-15 | US_ITS ---
CLINICAL HISTORY: RUQ pain --- Additional Notes or Special Instructions: GB, CBD, liver US abdomen limited with color Doppler Comparison: None Findings: Liver is normal in size and echotexture. Right lobe length 17.1 cm. No focal hepatic masses. Common duct 3.4 mm diameter. Borderline gallbladder hydrops. No gallstones, sludge or wall abnormalities. No gallbladder wall thickening. No pericholecystic fluid. Positive sonographic Willard's sign. Main portal vein antegrade. Impression: 1. Borderline gallbladder hydrops. No gallstones demonstrated. Positive sonographic Willard's sign. No biliary dilatation. This document has been electronically signed by: Moises Morrell MD on 10/15/2025 10:30:26
[2025-10-15 08:50] VITALS: BP 168/103; PULSE 77; RESP 20; TEMP 36.8; O2SAT 99; BMI 33.3
--- NOTE | 2025-10-15 09:06 | ED_ITS ---
HPI - General Adult General Chief complaint: Abdominal Pain Stated complaint: abd pain Time Seen by Provider: 10/15/25 09:03 Source: patient and family (patient's provided additional history and confirmed the history provided by the patient. ) Mode of arrival: ambulatory Limitations: no limitations History of Present Illness ED Provider: Rina Novoa PA-C HPI narrative: Patient is a 59 year old male with a history of GERD, HLD, and CARMEN presenting to the emergency department today with right upper quadrant abdominal pain. Patient states that he has had a total of 3 episodes of sudden onset right upper quadrant abdominal pain. Patient states that the last 2 times it resolved but today it has hung around much longer and is much more painful. Patient states that he is concerned that it his gallbladder. Patient denies any other complaints at this time. Related Data Home Medications ?Medication ?Instructions ?Recorded ?Confirmed cetirizine 10 mg tablet 10 mg PO DAILY 10/15/2509/27 Previous Rx's ?Medication ?Instructions ?Recorded CPAP #1 ea 03/30/24 omeprazole 20 mg capsule,delayed 20 mg PO DAILY 90 day s #90 caps 07/20/25 release Allergies Allergy/AdvReac Type Severity Reaction Status Date / Time pollen Allergy Mild Itching Uncoded 10/15/25 08:52 Review of Systems 2 Constitutional: Constitutional: Reports as per HPI Eyes: Eyes: Reports as per HPI ENT: Reports as per HPI Cardiovascular: Cardiovascular: Reports as per HPI Respiratory: Respiratory: Reports as per HPI Gastrointestinal: Gastrointestinal: Reports as per HPI Genitourinary: Genitourinary: Reports as per HPI Musculoskeletal: Musculoskeletal: Reports as per HPI Integumentary/Breasts: Skin/Breast: Reports as per HPI Neurologic: Reports as per HPI Psychiatric: Psychiatric: Reports as per HPI Endocrine: Endocrine: Reports as per HPI Hematologic/Lymphatic: Hematologic/Lymphatic: Reports as per HPI Allergic/Immunologic: Allergic/Immunologic: Reports as per HPI [facility] Past Medical History Attestation statement: The following information was validated with the patient. (patient's validated all information) Source: old records reviewed, obtained from family (patient's provided additional history and confirmed the history provided by the patient. ) and nursing notes reviewed Medical History Leukopenia Class 1 obesity without serious comorbidity with body mass index (BMI) of 33.0 to 33.9 in adult CARMEN on CPAP GERD (gastroesophageal reflux disease) Surgical History Status post ablation of incompetent vein using laser H/O colonoscopy History of ankle surgery Family History Family History Father Esophageal cancer Mother Alzheimers disease Social History Social History Housing: Apartment Alcohol intake: current Alcohol intake frequency: a few times a week Alcohol type: other Patient Tobacco Use Status: Never used Tobacco Smoked in Last 30 Days: No e-Cigarette/Vaping Use: Never Used Second Hand Smoke Exposure: No Use of substances other than those prescribed or required for medical reasons: No Advance Directives: No Advance Directives Information Provided: Yes Do you have a plan to hurt others: No Plan service: No Current occupational status: retired 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 [employer] Cognitive needs: No Hearing needs: No Vision needs: No Physical Exam ED Vital Signs: Vital Signs - 24 hr 10/15/25 08:50 10/15/25 09:56 10/15/25 11:34 Temperature 98.3 F 97.8 F Pulse Rate 77 69 62 Respiratory Rate 20 20 16 Blood Pressure 168/103 H 143/96 H 137/91 H Pulse Oximetry 99 99 95 Oxygen Delivery Method Room Air Room Air Room Air BMI result Body Mass Index 33.3 Const General: cooperative, no acute distress, alert and awake Nutritional Appearance: well nourished Orientation/consciousness: patient oriented x3 HENMT Head: Yes normal to inspection and Yes atraumatic Ears: hearing grossly normal bilaterally and external ears normal General nose exam: Normal external nose present, no nasal discharge noted and no epistaxis Face and sinus: Yes normal facial exam, No abrasion and No laceration Mouth: Normal oral and palatal mucosa present, no drooling and no muffled voice Eyes General: appearance normal, both eyes and all related structures Periorbital: periorbital findings normal Eyelids: Yes eyelids normal Conjunctivae: conjunctivae normal Pupils: Equal, round and reactive pupils present EOM: EOMs intact bilaterally Neck Neck: Yes normal visual inspection and Yes full ROM Resp Effort & Inspection: normal respiratory effort and able to speak in complete sentences GI Palpation (GI): Soft to palpation, not firm, Tenderness to palpation present (GI) in the RUQ, no guarding and not rigid Neuro General: patient oriented x3, moves all extremities and CN's II-XI intact bilaterally Cranial nerves: Yes Equal, round and reactive pupils present Cognition (Neuro): normal cognition Extrem General: Yes normal to inspection, Yes full ROM and Yes capillary refill normal Psych Appearance: grossly normal Mental Status: mental status grossly normal Affect: normal affect Attitude: cooperative Thought process: Normal thought process present Thought content: Normal thought content present Insight: Good insight present (Psych) Medications Administered Generic Name Dose Route Start Last Admin Trade Name Freq PRN Reason Stop Dose Admin Lactated Ringer's 1,000 mls @ 100 mls/hr 10/15/25 15:00 10/15/25 15:30 Lr IVCONT 100 mls/hr .Q10H WILLIAM Administration Sodium Chloride 3 ml 10/15/25 16:00 10/15/25 15:31 0.9 % Sodium Chloride Flush 3 Ml Syringe IVFLUSH Not Given QSHIFT WILLIAM Discontinued Medications Generic Name Dose Route Start Last Admin Trade Name Freq PRN Reason Stop Dose Admin Hydromorphone HCl 0.5 mg 10/15/25 09:28 10/15/25 09:51 Hydromorphone Hcl 0.5 Mg/0.5 Ml Syringe IVPUSH 10/15/25 09:29 0.5 mg ONCE ONE Administration Protocol Hydromorphone HCl 1 mg 10/15/25 10:37 10/15/25 10:42 Hydromorphone Hcl 1 Mg/Ml Syringe IVPUSH 10/15/25 10:38 1 mg ONCE ONE Administration Protocol Hydromorphone HCl 1 mg 10/15/25 13:54 10/15/25 13:57 Hydromorphone Hcl 1 Mg/Ml Syringe IVPUSH 10/15/25 13:55 1 mg ONCE ONE Administration Protocol Iohexol 100 ml 10/15/25 12:30 10/15/25 12:30 Iohexol 350 Mg/Ml 100 Ml Infus..Btl IV 10/15/25 12:31 85 ml ONCE ONE Administration Ketorolac Tromethamine 15 mg 10/15/25 10:37 10/15/25 10:42 Ketorolac Tromethamine 15 Mg/Ml Vial IVPUSH 10/15/25 10:38 15 mg ONCE ONE Administration Ondansetron HCl 4 mg 10/15/25 09:28 10/15/25 09:51 Ondansetron Hcl 4 Mg/2 Ml Vial IVPUSH 10/15/25 09:29 4 mg ONCE ONE Administration Medical Decision Making Medical Decision Making MDM Narrative: Patient is a 59 year old male with a history of GERD, HLD, and CARMEN presenting to the emergency department today with right upper quadrant abdominal pain. Patient's physical exam was as noted in the physical exam portion of this note. Patient's blood work was unremarkable. Patient's urine showed no acute process. Patient's EKG showed no obvious evidence of arrhythmia, ischemia, or infarct. Patient's US abd showed evidence of borderline gallbladder hydrops with no gallstones and positive sonographic willard's. Patient's CT abd/pelvis showed evidence of diverticulosis without diverticulitis and sclerosing mesenteritis along the mesenteric root. Patient received 15mg of IV toradol, 0.5mg of IV dilaudid, an additional 1mg of Dilaudid, and another additional 1mg of dilaudid which, upon re-evaluation, he stated it helped his symptoms some. I spoke with the general surgeon assistant manager of operations, Dr. Yee, who examined the patient and recommended admission to his service for continued observation. I explained my physical exam findings as well as all test results to the patient and the patient's . I answered all questions asked by the patient and the patient's . Patient and the patient's verbalized agreement and understanding with this treatment plan and admission. Differential Diagnosis Differential Diagnoses: The differential diagnosis associated with the presentation includes Choelithiasis Mesenteric adenitis Abdominal pain Admission/Observation Consideration of admission/observation: Escalation of care including admission/observation considered Patient admitted as noted in the MDM Rationale portion of this note. Consult Healthcare Provider Management of the patient was discussed with: Rn New Grad (spoke to the general surgeon as noted in the MDM Rationale portion of this note. ) Lab Data [facility] [place] Lab Attestation statement: I reviewed the patient's lab results. My interpretation of these results are in the MDM Rationale portion of this note. 10/15/25 09:47 10/15/25 09:47 Labs: Lab Results 10/15/25 10/15/25 Range/Units 09:47 11:47 WBC 8.5 (4.8-10.8) X10*3/uL RBC 5.09 (4.60-5.80) X10*6/uL Hgb 15.8 (14.0-18.0) g/dl Hct 44.6 (42.0-52.0) % MCV 87.6 (80.0-98.0) fL MCH 31.0 (27.0-33.0) pg MCHC 35.4 (31.0-36.0) g/dl RDW 12.3 (11.0-16.0) % Plt Count 197 (160-400) X10*3/uL MPV 8.5 L (9.4-12.4) fL Immature Gran % (Auto) 0.2 (0.0-0.4) % Neut % (Auto) 82.1 H (45-73) % Lymph % (Auto) 14.0 L (20-40) % [place] % (Auto) 3.3 (2-11) % Eos % (Auto) 0.2 (0-4) % Baso % (Auto) 0.2 (0-2) % Lymph # (Auto) 1.2 (1.2-4.9) X10*3/uL [place] # (Auto) 0.3 (0.1-1.2) X10*3/uL Eos # (Auto) 0.0 (0.0-0.4) X10*3/uL Baso # (Auto) 0.0 (0.0-0.2) X10*3/uL Abs Immat Gran (auto) 0.02 (0.00-0.03) X10*3/uL Absolute Neuts (auto) 6.9 (2.0-8.3) x10*3/uL Absolute Nucleated RBC 0.000 (0.0-0.012) X10*3/uL Nucleated RBC % (auto) 0.0 (0.0-0.2) /100WBC Sodium 138 (135-145) mmol/L Potassium 4.0 (3.3-5.1) mmol/L Chloride 105 (96-108) mmol/L Carbon Dioxide 24 (22-29) mmol/L Anion Gap 13 (12-20) BUN 15 (9-16) mg/dL Creatinine 0.88 (0.5-1.4) mg/dL Estim Creat Clear Calc 108.4 Estimated GFR > 60 Random Glucose 130 H (60-115) mg/dL Calcium 9.2 (8.4-10.2) mg/dL Magnesium 2.0 (1.6-2.6) mg/dL Total Bilirubin 0.6 (0.0-1.0) mg/dL AST 23 (5-37) U/L ALT 32 (0-40) U/L Alkaline Phosphatase 94 (39-117) U/L Troponin I High Sens < 2.7 (<3.5-35.0) ng/L Total Protein 7.1 (6.5-8.0) g/dL Albumin 4.5 (3.5-5.0) g/dL Lipase 35 (8-78) U/L Urine Color Yellow Urine Appearance Cloudy Urine pH 5.0 (5.0-9.0) Ur Specific [place] >= 1.030 H (1.005-1.025) Urine Protein Trace (Neg-Trace) mg/dL Urine Glucose (UA) 100 H (Negative) mg/dL Urine Ketones 15 (Negative) mg/dL Urine Blood Trace H (Negative) Urine Nitrite Negative (Negative) Ur Leukocyte Esterase Negative (Negative) Urine RBC 6-10 H (0-2) /HPF Urine WBC 0-5 (0-5) /HPF Ur Squamous Epith Cells 0-2 (0-2) /HPF Urine Bacteria None Seen (None Seen) Hyaline Casts 3-5 (0-2) /LPF Influenza Type A (PCR) NEGATIVE (Negative) Influenza Type B (PCR) NEGATIVE (Negative) RSV RNA Qual (PCR) NEGATIVE (Negative) SARS-CoV-2 RNA (RT-PCR) NEGATIVE (Negative) Independent Interpretation I performed an independent interpretation of an: CT Scan Interpretation: My interpretation is in agreement with the radiologist's impression of these imaging studies as written below. CLINICAL HISTORY: abd pain CT abdomen and pelvis with IV contrast. COMPARISON: None provided. FINDINGS: Minimal atelectasis along the lung bases. No focal hepatic lesion. Normal gallbladder. Normal spleen. Small splenule present. Normal pancreas. Normal adrenal glands. Symmetric renal enhancement. No hydronephrosis. Normal appendix. Moderate colonic diverticulosis without evidence of diverticulitis. No bowel obstruction. Focal edema along the mesenteric root with mildly prominent lymph nodes in this region and thin pseudo capsule. Mild aortoiliac atherosclerotic vascular calcifications. Normal appearance of the urinary bladder. No inguinal lymphadenopathy. No acute fracture or suspicious bone lesion. IMPRESSION: 1. No evidence of appendicitis or bowel obstruction. 2. Colonic diverticulosis without evidence of diverticulitis. 3. 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 This document has been electronically signed by: Adam Garcia MD on 10/15/2025 14:02:56 Dictated By: Adam Garcia MD Signed By: Electronically signed by Adam Garcia MD 10/15/25 1403 CLINICAL HISTORY: RUQ pain --- Additional Notes or Special Instructions: GB, CBD, liver US abdomen limited with color Doppler Comparison: None Findings: Liver is normal in size and echotexture. Right lobe length 17.1 cm. No focal hepatic masses. Common duct 3.4 mm diameter. Borderline gallbladder hydrops. No gallstones, sludge or wall abnormalities. No gallbladder wall thickening. No pericholecystic fluid. Positive sonographic Willard's sign. Main portal vein antegrade. Impression: 1. Borderline gallbladder hydrops. No gallstones demonstrated. Positive sonographic Willard's sign. No biliary dilatation. This document has been electronically signed by: Moises Morrell MD on 10/15/2025 10:30:26 Dictated By: Moises Morrell MD Signed By: Electronically signed by Moises Morrell MD 10/15/25 1031 I independently interpreted this EKG and am in agreement with the below findings: Vent. Rate: 64 BPM Atrial Rate: 64 BPM P-R Int: 188 ms QRS Dur: 74 ms QT Int: 398 ms P-R-T Axes: 90 -2 7 degrees QTcB Int: 410 ms Normal sinus rhythm 10/15/25 1125 Radiology Impression Discussion of test interpretation with radiology: I have reviewed the radiologist's reading. Independent Historian Clinical information obtained from an independent historian. History obtained from or confirmed by: Spouse (patient's provided additional history and confirmed the history provided by the patient. ) Critical Care Time Critical Care Time Critical Care Time: Yes Total Critical Care Time: 51 Attestation: I spent 51 minutes of Critical Care Time with this patient. This does not include time spent on separately reported billable procedures. Discharge Plan Discharge Clinical Impression: Abdominal pain, Sclerosing mesenteritis Patient Disposition: Admitted As Inpatient
--- NOTE | 2025-10-15 09:12 | ECG_ITS ---
Test Reason : EPIGASTRIC PAIN Blood Pressure : */* mmHG Vent. Rate : 64 BPM Atrial Rate : 64 BPM P-R Int : 188 ms QRS Dur : 74 ms QT Int : 398 ms P-R-T Axes : 90 -2 7 degrees QTcB Int : 410 ms Normal sinus rhythm Normal ECG No previous ECGs available Referred By: Rina Novoa Electronically Signed By: Shon Townsend
[2025-10-15 09:51] LABS: Hematocrit 44.6 % (42.0-52.0); Hemoglobin 15.8 g/dl (14.0-18.0); Imm Gran Abs Auto 0.02 X10*3/uL (0.00-0.03); Imm Gran Pct Auto 0.2 % (0.0-0.4); Lymphocytes Absolute Auto 1.2 X10*3/uL (1.2-4.9); MANUAL DIFF FLAG NO; Mean Corpuscular HGB Conc 35.4 g/dl (31.0-36.0); Mean Corpuscular Hemoglobin 31.0 pg (27.0-33.0); Mean Corpuscular Volume 87.6 fL (80.0-98.0); NRBC Abs Auto 0.000 X10*3/uL (0.0-0.012); NRBC Pct Auto 0.0 /100WBC (0.0-0.2); Platelet Count 197 X10*3/uL (160-400); Red Blood Count 5.09 X10*6/uL (4.60-5.80); White Blood Count 8.5 X10*3/uL (4.8-10.8)
[2025-10-15 09:56] VITALS: BP 143/96; PULSE 69; RESP 20; O2SAT 99
[2025-10-15 10:18] LABS: Albumin Level 4.5 g/dL (3.5-5.0); Alkaline Phosphatase 94 U/L (39-117); Anion Gap 13 (12-20); Aspartate Amino Transferase 23 U/L (5-37); Blood Urea Nitrogen 15 mg/dL (9-16); Calcium 9.2 mg/dL (8.4-10.2); Carbon Dioxide 24 mmol/L (22-29); Chloride 105 mmol/L (96-108); Creatinine Clr Calc Pharmacy 108.4; Estimated Glomerular Filt Rate > 60; Magnesium 2.0 mg/dL (1.6-2.6); Potassium 4.0 mmol/L (3.3-5.1); Sodium 138 mmol/L (135-145); Total Protein 7.1 g/dL (6.5-8.0)
[2025-10-15 10:23] LABS: Troponin-I High Sensitivity < 2.7 ng/L (<3.5-35.0)
[2025-10-15 10:30] LABS: Alanine Aminotransferase 32 U/L (0-40)
--- OUTSIDE RECORDS SUMMARY | 2025-10-15 10:42 | XMS_ITS | Patient Health Record ---
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 [employer] Problems Problem Type SNOMED Code ICD Code Onset Dates Problem Status W/U Status Risk Notes Problem Pre-procedure evaluation check (508339239) Encounter for other preprocedural examination (Z01.818) Active confirmed Problem Screening for colon cancer (278458771) Screening for colon cancer (Z12.11) Active confirmed Plan Of Treatment Future Test Test Name Order Date COLONOSCOPY 02/01/2016 Insurance Providers Payer Name Payer Address Payer Phone Subscriber Number Group Number Insured Name Patient Relationship to Insured Coverage Start Date Coverage End Date [facility] [address] [place] [phone] [id number] Self - patient is the insured Medical (General) History Medical History History ICD Code esophageal reflux, endoscopy reportedly normal 12 years ago. sleep apnea Surgical History Surgery Date(Month/Year) ankle tendon left repair 2011
[2025-10-15 11:34] VITALS: BP 137/91; PULSE 62; RESP 16; TEMP 36.6; O2SAT 95
[2025-10-15 12:03] LABS: Appearance Urine Cloudy; Glucose Urine UA 100 mg/dL (Negative); PH 5.0 (5.0-9.0); Specific Gravity - Urine >= 1.030 (1.005-1.025); UMIC TRIGGER UACC YES
[2025-10-15] MEDS: iohexoL 350 MG/ML 100 ML INFUS..BTL IV (12:30)
[2025-10-15 12:41] LABS: Resp Syncy Virus RNA Qual PCR NEGATIVE (Negative); SARS COV2 PCR INHOUSE NEGATIVE (Negative)
[2025-10-15 13:39] LABS: Lipase 35 U/L (8-78)
--- NOTE | 2025-10-15 14:42 | P.CONGS_ITS ---
History of Present Illness Consult details Consult date: 10/15/25 Narrative: 59-year-old male here in the ER because of abdominal pain. He describes having this sudden, severe epigastric pain at around 05:30 this morning. He says that he would rate it this at 9/10. He says that this was constant and he says that because of the severe pain, he became nauseous and had 2 small episodes of emesis He says the pain has markedly improved after pain medications here in the ER. Currently he says that he has significant happened pain He describes having similar episodes 3 months ago and about 2 months ago. Both of these episodes lasted for about 2-3 hours. These also resolved spontaneously. He denies any previous abdominal surgery. He says that has lost about 35 lb on his own he used to be obese. He also has sleep apnea and GERD. [facility] Past Medical History Medical History Leukopenia Class 1 obesity without serious comorbidity with body mass index (BMI) of 33.0 to 33.9 in adult CARMEN on CPAP GERD (gastroesophageal reflux disease) Family History Family History Father Esophageal cancer Mother Alzheimers disease Surgical History Surgical History Status post ablation of incompetent vein using laser H/O colonoscopy History of ankle surgery Social History Social History Housing: Apartment Alcohol intake: current Alcohol intake frequency: a few times a week Alcohol type: other Patient Tobacco Use Status: Never used Tobacco Smoked in Last 30 Days: No e-Cigarette/Vaping Use: Never Used Second Hand Smoke Exposure: No Use of substances other than those prescribed or required for medical reasons: No Advance Directives: No Advance Directives Information Provided: Yes Do you have a plan to hurt others: No Plan service: No Current occupational status: retired 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 [employer] Cognitive needs: No Hearing needs: No Vision needs: No Meds Allergies Allergy/AdvReac Type Severity Reaction Status Date / Time pollen Allergy Mild Itching Uncoded 10/15/25 08:52 Physical Exam 2 Vital Signs: Vital Signs: Last Vital Signs Temp 97.8 F 10/15/25 11:34 Pulse 62 10/15/25 11:34 Resp 16 10/15/25 11:34 BP 137/91 H 10/15/25 11:34 Pulse Ox 95 10/15/25 11:34 O2 Del Method Room Air 10/15/25 11:34 BMI result Body Mass Index 33.3 Results Labs 10/15/25 09:47 10/15/25 09:47 Labs: Abnormal lab results 10/15/25 10/15/25 Range/Units 09:47 11:47 MPV 8.5 L (9.4-12.4) fL Neut % (Auto) 82.1 H (45-73) % Lymph % (Auto) 14.0 L (20-40) % Random Glucose 130 H (60-115) mg/dL Ur Specific [place] >= 1.030 H (1.005-1.025) Urine Glucose (UA) 100 H (Negative) mg/dL Urine Blood Trace H (Negative) Urine RBC 6-10 H (0-2) /HPF Short CBC 10/15/25 Range/Units 09:47 WBC 8.5 (4.8-10.8) X10*3/uL Hgb 15.8 (14.0-18.0) g/dl Hct 44.6 (42.0-52.0) % Plt Count 197 (160-400) X10*3/uL BMP 10/15/25 09:47 Sodium 138 Potassium 4.0 Chloride 105 Carbon Dioxide 24 BUN 15 Creatinine 0.88 Calcium 9.2 Liver Function 10/15/25 Range/Units 09:47 Total Bilirubin 0.6 (0.0-1.0) mg/dL AST 23 (5-37) U/L ALT 32 (0-40) U/L Alkaline Phosphatase 94 (39-117) U/L Albumin 4.5 (3.5-5.0) g/dL Urine 10/15/25 Range/Units 11:47 Urine Color Yellow Urine Appearance Cloudy Urine pH 5.0 (5.0-9.0) Ur Specific [place] >= 1.030 H (1.005-1.025) Urine Protein Trace (Neg-Trace) mg/dL Urine Glucose (UA) 100 H (Negative) mg/dL All other labs normal. Procedures Date of Service Date of Service: 10/15/25
--- NOTE | 2025-10-15 14:45 | PM.HPGS ---
History of Present Illness History of Present Illness Date of Service: 10/16/25 Chief complaint: abd pain Narrative: Ramsey Cheng is a 59 year old male here in the ER because of abdominal pain. He describes having this sudden, severe epigastric pain at around 05:30 this morning. He says that he would rate it this at 9/10. He says that this was constant and he says that because of the severe pain, he became nauseous and had 2 small episodes of emesis He says the pain has markedly improved after pain medications here in the ER. Currently he says that he has significant happened pain He describes having similar episodes 3 months ago and about 2 months ago. Both of these episodes lasted for about 2-3 hours. These also resolved spontaneously. He denies any previous abdominal surgery. He says that has lost about 35 lb on his own he used to be obese. He also has sleep apnea and GERD. Review of Systems Constitutional: Constitutional: Denies chills and Denies fever(s) Cardiovascular: Cardiovascular: Denies chest pain, Denies dyspnea and Denies dyspnea on exertion Respiratory: Respiratory: Denies cough, Denies dyspnea and Denies dyspnea on exertion Gastrointestinal: Gastrointestinal: Denies hematochezia and Denies change in bowel habits Genitourinary: Genitourinary: Denies hematuria and Denies difficulty urinating Musculoskeletal: Musculoskeletal: Denies back pain and Denies limited range of motion Neurologic: Denies focal weakness and Denies convulsions Psychiatric: Psychiatric: Denies depression and Denies mood swings PMFSH Past Medical History Medical History Leukopenia Class 1 obesity without serious comorbidity with body mass index (BMI) of 33.0 to 33.9 in adult CARMEN on CPAP GERD (gastroesophageal reflux disease) Family History Family History Father Esophageal cancer Mother Alzheimers disease Surgical History Surgical History Status post ablation of incompetent vein using laser H/O colonoscopy History of ankle surgery Social History Social History Household Members: Spouse Housing: House Do you presently have visiting nurse or other home services: No Alcohol intake: current Alcohol intake frequency: a few times a week Alcohol type: other Patient Tobacco Use Status: Never used Tobacco Smoked in Last 30 Days: No e-Cigarette/Vaping Use: Never Used Second Hand Smoke Exposure: No Use of substances other than those prescribed or required for medical reasons: No Currently Displaying Signs/Symptoms of Drug Intoxication Withdrawal: No Have you been hit, kicked, punched, or otherwise hurt by someone within the past year? If so, by whom?: No Do you feel safe in your current relationship?: Yes Is there a partner from a previous relationship who is making you feel unsafe now?: No Are you made to feel afraid or neglected: No Advance Directives: No Advance Directives Information Provided: Yes Do you have a plan to hurt others: No Plan Recently lost weight without trying: No How much weight loss: Not applicable Eating poorly because of decreased appetite: No Nutrition screen score: 0 Nutrition Risks: No Nutritional Risk Poor oral hygiene: No service: No Current occupational status: retired 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 Cognitive needs: No Hearing needs: No Vision needs: No Meds Allergies Allergy/AdvReac Type Severity Reaction Status Date / Time pollen Allergy Mild Itching Uncoded 10/15/25 08:52 Home Medications ?Medication ?Instructions ?Recorded ?Confirmed ?Last Taken ?Type cetirizine 10 mg tablet 10 mg PO DAILY 10/15/25 10/15/25 10/14/25 History Physical Exam Vital Signs: Vital Signs: Last Vital Signs Temp 97.8 F 10/15/25 11:34 Pulse 62 10/15/25 11:34 Resp 16 10/15/25 11:34 BP 137/91 H 10/15/25 11:34 Pulse Ox 95 10/15/25 11:34 O2 Del Method Room Air 10/15/25 11:34 BMI result Body Mass Index 33.3 Const: General: comfortable and no acute distress Orientation/consciousness: patient oriented x3 Neck: Neck: Yes no lymphadenopathy Resp: Auscultation: clear to auscultation bilaterally Cardio: Rhythm: regular rhythm GI: Other: Currently nontender, no Willard's sign Palpation (GI): Soft to palpation, nontender and no guarding Neuro: General: patient oriented x3 Results Results Labs: Short CBC 10/15/25 Range/Units 09:47 WBC 8.5 (4.8-10.8) X10*3/uL Hgb 15.8 (14.0-18.0) g/dl Hct 44.6 (42.0-52.0) % Plt Count 197 (160-400) X10*3/uL BMP 10/15/25 09:47 Sodium 138 Potassium 4.0 Chloride 105 Carbon Dioxide 24 BUN 15 Creatinine 0.88 Calcium 9.2 Liver Function 10/15/25 Range/Units 09:47 Total Bilirubin 0.6 (0.0-1.0) mg/dL AST 23 (5-37) U/L ALT 32 (0-40) U/L Alkaline Phosphatase 94 (39-117) U/L Albumin 4.5 (3.5-5.0) g/dL Urine 10/15/25 Range/Units 11:47 Urine Color Yellow Urine Appearance Cloudy Urine pH 5.0 (5.0-9.0) Ur Specific [place] >= 1.030 H (1.005-1.025) Urine Protein Trace (Neg-Trace) mg/dL Urine Glucose (UA) 100 H (Negative) mg/dL Abdomen CT scan report/results: report reviewed and image reviewed CT scan - pelvis: report reviewed and image reviewed Abdominal ultrasound report/results: report reviewed and image reviewed Assessment and Plan (1) Abdominal pain: Status: Acute He had severe abdominal pain described to be in the mid to epigastric area lasting for several hours this morning. Currently he says that his pain has resolved. He does not have any significant pain or tenderness on examination. His abdominal exam is very benign I have reviewed his CAT scan and this suggest mesenteritis of the root of the mesentery of the small intestine. He does not present with a any obstructive signs. He appears comfortable I did recommend to him to be admitted overnight to be observed because of his severe pain earlier. He does not have any gallstones on imaging studies. Clinically this does not appear to be acute cholecystitis therefore. However, view of his episodic pain the past few months, I told him that I would recommend a HIDA scan at some point as an outpatient. Initially, he was hesitant about staying hospital and had insisted on going home. However, his convinced him to stay at least overnight. His labs are unremarkable. Quality Stroke Does the patient have a stroke diagnosis?: No VTE Prior VTE?: No VTE Risk Level:: Medical - moderate - high VTE Device Contraindication: N/A - Device Ordered VTE Drug Contraindication: N/A - Med Ordered Procedures Date of Service Date of Service: 10/16/25
[2025-10-15] MEDS: Lactated Ringers 1,000 ML 100 ML IVCONT (15:30)
[2025-10-15 15:32] VITALS: BP 147/98; PULSE 65; RESP 16; O2SAT 98
--- NOTE | 2025-10-15 15:38 | PHA.MEDREC ---
Addendum entered by Neha Hwang RPh 10/15/25 15:46: Reviewed by [facility] Original Note: Pharmacy Consult ? Medication Reconciliation Pharmacy has completed the medication reconciliation. Confirmed medication list with patient and against Pharmacy claims. Patient claims he only takes omeprazole and cetirizine. patient took cetirizine last night and took omeprazole this morning, but vomited shortly after taking.
--- NOTE | 2025-10-15 16:03 | HO.NURTONUR ---
Came to ED with abdominal pain. Patient had similar episodes 2-3 months ago. Patient being admitted for observation overnight d/t severe abdominal pain. Plan for HIDA scan outpatient. Labs unremarkable. 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 Dilaudid and Toradol given for pain - effective. Patient awake, alert and oriented. L AC 20G. Patient ambulates independently. Clear liquid diet. Tolerating water well. at the bedside.
[2025-10-15 16:55] VITALS: BMI 33.4
[2025-10-15 16:56] VITALS: BP 147/89; PULSE 70; RESP 18; TEMP 36.4; O2SAT 98
[2025-10-15] MEDS: 0.9 % Sodium Chloride Flush 3 ML SYRINGE IVFLUSH (19:07)
[2025-10-15 20:00] VITALS: BP 139/89; PULSE 93; RESP 18; TEMP 36.9; O2SAT 94
[2025-10-16] MEDS: Lactated Ringers 1,000 ML 100 ML IVCONT (01:33)
[2025-10-16 04:00] VITALS: BP 134/76; PULSE 101; RESP 18; TEMP 36.9; O2SAT 95
[2025-10-16 06:43] LABS: Hematocrit 45.4 % (42.0-52.0); Hemoglobin 15.6 g/dl (14.0-18.0); Mean Corpuscular HGB Conc 34.4 g/dl (31.0-36.0); Mean Corpuscular Hemoglobin 31.0 pg (27.0-33.0); Mean Corpuscular Volume 90.1 fL (80.0-98.0); NRBC Abs Auto 0.000 X10*3/uL (0.0-0.012); NRBC Pct Auto 0.0 /100WBC (0.0-0.2); Platelet Count 187 X10*3/uL (160-400); Red Blood Count 5.04 X10*6/uL (4.60-5.80); White Blood Count 15.6 X10*3/uL (4.8-10.8)
[2025-10-16 06:50] VITALS: BP 128/63; PULSE 102; RESP 16; TEMP 36.6; O2SAT 94
[2025-10-16 06:57] LABS: Anion Gap 13 (12-20); Blood Urea Nitrogen 11 mg/dL (9-16); Calcium 8.8 mg/dL (8.4-10.2); Carbon Dioxide 25 mmol/L (22-29); Chloride 103 mmol/L (96-108); Creatinine Clr Calc Pharmacy 124.1; Estimated Glomerular Filt Rate > 60; Potassium 4.0 mmol/L (3.3-5.1); Sodium 137 mmol/L (135-145)
--- NOTE | 2025-10-16 09:49 | P.PNGS_ITS ---
Subjective Subjective Date of Service: 10/16/25 Interval history: Says his pain has improved significantly He did take at 11:00 last night No nausea or vomiting Passing flatus Physical Exam 2 Vital Signs: Vital Signs: Last Vital Signs Temp 98 F 10/16/25 06:50 Pulse 102 H 10/16/25 06:50 Resp 16 10/16/25 06:50 BP 128/63 10/16/25 06:50 Pulse Ox 94 10/16/25 06:50 O2 Del Method Room Air 10/16/25 06:50 BMI result Body Mass Index 33.4 Const: General: comfortable and no acute distress Resp: Effort & Inspection: normal respiratory effort Cardio: Rate: regular rate GI: Palpation (GI): Soft to palpation, not firm, Tenderness to palpation present (GI) (Mild tenderness epigastric area) and no guarding Objective Data Active Medications Acetaminophen (Acetaminophen 325 Mg Tablet) 650 mg PO Q6H PRN PRN Reason: Pain, Mild 1-3,fever,headache Calcium Carbonate (Calcium Carbonate 750 Mg Tab.Chew) 750 mg PO Q4H PRN PRN Reason: Heartburn Heparin Sodium (Porcine) (Heparin Sodium,Porcine 5,000 Unit/Ml Vial) 5,000 unit SUBCUT Q8H [facility] Hydromorphone HCl (Hydromorphone Hcl 1 Mg/Ml Syringe) 0.5 mg IVPUSH Q4H PRN; Protocol PRN Reason: Pain, Severe (Pain Scale 7-10) Last Admin: 10/15/25 23:28 Dose: 0.5 mg Documented By: CARINA Lactated Ringer's (Lr) 1,000 mls @ 100 mls/hr IVCONT .Q10H [facility] Last Admin: 10/16/25 01:33 Dose: 100 mls/hr Documented By: PAPO Melatonin (Melatonin 3 Mg Tablet) 6 mg PO BEDTIME PRN PRN Reason: Insomnia Omeprazole (Omeprazole 20 Mg Capsule.Dr) 20 mg PO DAILY [facility] Last Admin: 10/16/25 08:06 Dose: 20 mg Documented By: GLEN Ondansetron HCl (Ondansetron Hcl 4 Mg/2 Ml Vial) 4 mg IVPUSH Q6H PRN PRN Reason: Nausea and Vomiting Sodium Chloride (0.9 % Sodium Chloride Flush 3 Ml Syringe) 3 ml IVFLUSH QSHIFT [facility] Last Admin: 10/16/25 08:10 Dose: Not Given Documented By: GLEN Non-Admin Reason: IV Running Labs 10/16/25 05:44 10/16/25 05:44 Labs: Laboratory Results - last 24 hr 10/15/25 10/15/25 10/16/25 09:47 11:47 05:44 MCV 87.6 90.1 MCH 31.0 31.0 MCHC 35.4 34.4 RDW 12.3 12.5 Plt Count 197 187 MPV 8.5 L 8.8 L Immature Gran % (Auto) 0.2 Neut % (Auto) 82.1 H Lymph % (Auto) 14.0 L [place] % (Auto) 3.3 Eos % (Auto) 0.2 Baso % (Auto) 0.2 Lymph # (Auto) 1.2 [place] # (Auto) 0.3 Eos # (Auto) 0.0 Baso # (Auto) 0.0 Abs Immat Gran (auto) 0.02 Absolute Neuts (auto) 6.9 Absolute Nucleated RBC 0.000 0.000 Nucleated RBC % (auto) 0.0 0.0 Anion Gap 13 13 Estim Creat Clear Calc 108.4 124.1 Estimated GFR > 60 > 60 Random Glucose 130 H 136 H Calcium 9.2 8.8 Magnesium 2.0 Total Bilirubin 0.6 AST 23 ALT 32 Alkaline Phosphatase 94 Troponin I High Sens < 2.7 Total Protein 7.1 Albumin 4.5 Lipase 35 Urine Color Yellow Urine Appearance Cloudy Urine pH 5.0 Ur Specific [place] >= 1.030 H Urine Protein Trace Urine Glucose (UA) 100 H Urine Ketones 15 Urine Blood Trace H Urine Nitrite Negative Ur Leukocyte Esterase Negative Urine RBC 6-10 H Urine WBC 0-5 Ur Squamous Epith Cells 0-2 Urine Bacteria None Seen Hyaline Casts 3-5 Influenza Type A (PCR) NEGATIVE Influenza Type B (PCR) NEGATIVE RSV RNA Qual (PCR) NEGATIVE SARS-CoV-2 RNA (RT-PCR) NEGATIVE Procedures Date of Service Date of Service: 10/16/25 Progress Note: A&P Assessment and plan (1) Abdominal pain: Status: Acute Assessment and Plan: CAT scan suggestive of mesenteritis No nausea or vomiting He says pain is better Abdomen is soft and benign He however has leukocytosis - uncertain of etiology We will try him on regular diet He insisting on being discharged today he says he feels well overall - it is also his birthday today I will re-evaluate later on today No fever, good vital signs Time Spent With Patient Time: Total time managing care of this patient today ____ minutes. Quality Stroke Does the patient have a stroke diagnosis?: No VTE Prior VTE?: No VTE Risk Level:: Medical - moderate - high VTE Device Contraindication: N/A - Device Ordered VTE Drug Contraindication: N/A - Med Ordered
--- NOTE | 2025-10-16 13:31 | PM.EVENT ---
Event Note Date of Service: 10/17/25 Event Note: Seen on afternoon rounds Tolerating diet Passing flatus He remains afebrile Abdomen is soft, benign, very minimal tenderness on the epigastric area Looks well and has been ambulating He is insisting on going home - it is his birthday today He understands the risk of recurrent pain I explained to him that I am a bit worried about the leukocytosis although he has had no we can pain or fever will discharge him He understands the risk of recurrence His was with him during the lengthy discussion Time Spent With Patient Time: Total time managing care of this patient today ____ minutes.
--- NOTE | 2025-10-16 14:17 | P.DS_ITS ---
DS: Providers Provider Date of admission: 10/15/25 14:49 Date of discharge: 10/16/25 Primary care physician: Emani Sullivan MD Attending physician on admission: Russell Yee Attending physician on discharge: Russell Yee DS: Diagnosis Discharge Diagnosis (1) Abdominal pain: Status: Acute DS: Summary Hospital Course Hospital Course: HPI AT ADMISSION: Ramsey Cheng is a 59 year old male here in the ER because of abdominal pain. He describes having this sudden, severe epigastric pain at around 05:30 this morning. He says that he would rate it this at 9/10. He says that this was constant and he says that because of the severe pain, he became nauseous and had 2 small episodes of emesis. He says the pain has markedly improved after pain medications here in the ER. Currently he says that he has significant happened pain. He describes having similar episodes 3 months ago and about 2 months ago. Both of these episodes lasted for about 2-3 hours. These also resolved spontaneously. He denies any previous abdominal surgery. He says that has lost about 35 lb on his own he used to be obese. He also has sleep apnea and GERD. CAT scan and this suggest mesenteritis of the root of the mesentery of the small intestine. He does not present with a any obstructive signs. Labs are unremarkable. HOSPITAL COURSE: He was admitted to the surgical service for observation given the severity of his pain. At the time of his evaluation, his pain had resolved. He did not have any significant pain or tenderness on examination and his abdomen was benign. He did not have any gallstones on imaging studies and cl inically his picture was not suggestive of acute cholecystitis therefore. However, in view of his episodic pain the past few months, HIDA scan at some point as an outpatient. His symptoms improved and he felt well. He however developed a significant leukocytosis of unknown etiology. He however felt well and insisted on being discharged. His exam remained benign and he was clinically appearing well with stable vitals, afebrile. He was advanced to a solid diet. He was reassessed later in the day and continued to feel well, was tolerating a solid diet with good GI function and a benign abd exam and was hemodynamically stable. He was discharged to home with strict instructions to return if he developed fever,vomiting, severe pain. He is to follow up with his PCP upon discharge. Time Attestation Discharge Coordination Time (in mins): 20 Quality: Safe Use of Opioids Does Pt have an Active Cancer Diagnosis on the Problem List?: No Quality: Stroke Does the patient have a stroke diagnosis?: No Physical Exam Vital Signs: Vital Signs: Last Vital Signs Temp 98 F 10/16/25 06:50 Pulse 102 H 10/16/25 06:50 Resp 16 10/16/25 06:50 BP 128/63 10/16/25 06:50 Pulse Ox 94 10/16/25 06:50 O2 Del Method Room Air 10/16/25 06:50 BMI result Body Mass Index 33.4 Const: General: comfortable, no acute distress and alert Resp: Effort & Inspection: normal respiratory effort GI: Other: Abdomen is soft, benign, very minimal tenderness on the epigastric area Discharge Plan Discharge Anticipated Discharge Date/Time: 10/16/25 14:34 Patient Disposition: Home, Self-Care Discharge Diagnosis: Abdominal pain, mesenteritis on CT Referrals: Emani Henderson MD [Primary Care Provider, Internal Medicine] - 1 Week Discharge Medications: Continued (DME) CPAP Device See Rx Instructions .Route Qty: 1 0RF Rx Instructions: auto PAP 6-20 cm H2O omeprazole 20 mg capsule,delayed release(DR/EC) 20 mg PO DAILY 90 Days Qty: 90 1RF cetirizine 10 mg Tablet 10 mg PO DAILY Discharge Orders: Discharge Order (Routine); Ordered 10/16/25 Ordered By: Russell Yee Diet: Advance to usual diet Activity on Discharge: As tolerated Stand Alone Forms: Patient Portal Discharge page Print Language: Lithuanian Activity Restrictions/Additional Instructions: Small frequent meals Returned to the ER if he has recurrent severe pain, vomiting Follow up with primary care physician Care Plan Goals: Returned to baseline Health Concerns: Recent episode of abdominal pain, mesentery flatus on CT Plan of Treatment: Close observation Assessment: Doing well, symptoms resolved Discharge Date/Time: 10/16/25 14:12
--- NOTE | 2025-10-16 16:37 | MHC.CM.PN ---
PT CLEARED TO DC HOME TODAY WITH NO SERVICES VIA PRIVATE TRANSPORT PT INDEPENDENT, LIVES WITH , NO DME OR SERVICES [employer]
== END 2025-10-16 14:12 | disposition home or self-care (01) | DRG 392 ==
LOC: HO.ED 14:45 → HO.EDOVER 15:10 → HO.S3 16:21
PROVIDERS: Physician Assistant Medical; Admitting Provider Surgery; Emergency Provider Emergency Medicine; PCP Internal Medicine; Visit Provider Surgery
DX: R10.13 Epigastric pain (principal); Z20.822 Contact with and (suspected) exposure to COVID-19; Z79.899 Other long term (current) drug therapy
CPT/HCPCS: 36415; 74177; 76705; 80048; 80053; 81001; 81003; 83690; 83735; 84484; 85025; 85027; 87637; 93005; 99285; J1171; J1885; J2405; J7120; Q9967

== ENCOUNTER → 2025-10-15 09:12 | Outpatient (BNV) | payer OTHER, SELFPAY | PROVIDERS: PCP Internal Medicine; Visit Provider Radiology Diagnostic Radiology | DX: K57.30 Diverticulosis of large intestine without perforation or abscess without bleeding (principal); R10.11 Right upper quadrant pain | CPT/HCPCS: 74177; 76705 ==

== ENCOUNTER → 2025-10-15 09:12 | Outpatient (BNV) | payer OTHER, SELFPAY | PROVIDERS: PCP Internal Medicine; Visit Provider Internal Medicine Cardiovascular Disease | DX: R10.13 Epigastric pain (principal) | CPT/HCPCS: 93010 ==

== ENCOUNTER → 2025-10-15 14:49 | Outpatient (BNV) | payer OTHER, SELFPAY | PROVIDERS: Admitting Provider Surgery; Emergency Provider Emergency Medicine; PCP Internal Medicine; Visit Provider Surgery | DX: R10.9 Unspecified abdominal pain (principal) | CPT/HCPCS: 99222; 99232; 99238; 99499 ==